=== PATIENT | female | born 1985 | race Caucasian/White ===

== ENCOUNTER 2016-11-24 17:38 | Emergency (ER) | payer MEDICAID ==
[2016-11-24 17:50] VITALS: BP 161/114
--- NOTE | 2016-11-24 18:17 | ED Physician Documentation ---
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 - Present Medications Home Medications: Ambulatory Orders Medication Instructions Recorded Confirmed Erythromycin Base [Erythromycin] 1 applic OP 5XD 7 Days 11/24/16 - Allergies Allergies/Adverse Reactions: Allergies Allergy/AdvReac Type Severity Reaction Status Date / Time No Known Drug Allergies Allergy Verified 11/24/16 17:46 - Social History Does the pt smoke?: Yes Smoking Status: Current every day smoker Does the pt drink ETOH?: Yes Does the pt have substance abuse?: No - Immunizations Immunizations are current?: Yes PD ED PE NORMAL - Vitals Vital signs reviewed: Yes - General General: Alert and oriented X 3, No acute distress - HEENT HEENT: PERRL, EOMI, Other (Inflamed conjunctiva bilaterally with mild purulent drainage, no fluorescein uptake. 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 Departure - Departure Disposition: 01 Home, Self Care Clinical Impression: Conjunctivitis Qualifiers: Conjunctivitis type: acute Acute conjunctivitis type: unspecified Laterality: bilateral Qualified Code(s): H10.33 - Unspecified acute conjunctivitis, bilateral Condition: Good Record reviewed to determine appropriate education?: Yes Instructions: ED Conjunctivitis Nonspecific Prescriptions: Erythromycin Base [Erythromycin] 1 applic OP 5XD 7 Days Comments: Followup with your eye doctor in one week if better, to 3 days if not better, return if worse. Do not wear your contacts until better for at least a week.+ Your blood pressure was elevated today on check in to the emergency department. This does not mean that you have hypertension, it is a common phenomenon to check into the emergency department and have elevated blood pressure. I recommend that you see your primary care physician within the week to have it rechecked when you're feeling better. Forms: Activity restrictions
== END 2016-11-24 18:24 | disposition home or self-care (01) ==
LOC: ED 17:38
DX: H10.33 Unspecified acute conjunctivitis, bilateral (principal); F17.200 Nicotine dependence, unspecified, uncomplicated; R03.0 Elevated blood-pressure reading, without diagnosis of hypertension
CPT/HCPCS: 99283

== ENCOUNTER 2018-07-09 20:25 | Emergency (ER) | payer SELFPAY ==
[2018-07-09 20:33] VITALS: BP 140/95
[2018-07-09] MEDS ORDERED: PENICILLIN VK 250 MG TABLET PO STA (20:50)
[2018-07-09] MEDS ORDERED: DEXAMETHASONE 10 MG/ML VIAL PO STA (20:50)
--- NOTE | 2018-07-09 20:52 | ED Physician Documentation ---
History of Present Illness - Stated complaint Stated Complaint: THROAT PX - Chief complaint Chief Complaint: Heent - History obtained from History obtained from: Patient - History of Present Illness Timing: How many days ago (3) Pain level max: 6 Pain level now: 6 - Additonal information Additional information: 33-year-old female presents to the emergency department for sore throat for the past several days. She has had URI symptoms for the past several weeks. Sore throat is gradually worsened over the past few days and now having difficulty swallowing. White exudate covering the tonsils. Worse with swallowing. 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 - Present Medications Home Medications: Ambulatory Orders Medication Instructions Recorded Confirmed Ibuprofen [Motrin] 800 mg PO Q8H PRN #30 tablet 07/09/18 Penicillin V Potassium 500 mg PO Q6HR #40 tablet 07/09/18 - Allergies Allergies/Adverse Reactions: Allergies Allergy/AdvReac Type Severity Reaction Status Date / Time No Known Drug Allergies Allergy Verified 07/09/18 20:32 - Social History Does the pt smoke?: Yes Smoking Status: Current every day smoker Does the pt drink ETOH?: Yes Does the pt have substance abuse?: No - Immunizations Immunizations are current?: Yes - POLST Patient has POLST: No PD ED PE NORMAL - Vitals Vital signs reviewed: Yes - General General: Alert and oriented X 3, No acute distress - HEENT HEENT: Ears normal, Moist mucous membranes, Other (Posterior oropharyngeal erythema with bilateral tonsillar exudates. Uvula midline. Normal phonation. No trismus) - Neck Neck: Supple, no meningeal sign, No adenopathy - Cardiac Cardiac: RRR, Strong equal pulses - Respiratory Respiratory: No respiratory distress, Clear bilaterally - Abdomen Abdomen: Soft, Non tender, Non distended - Derm Derm: Warm and dry - Neuro Neuro: Alert and oriented X 3 - Psych Psych: Normal mood, Normal affect Results - Vitals Vitals: Vital Signs - 24 hr 12/26/18 20:29 Temperature 36.8 C Heart Rate 105 H Respiratory 17 Rate Blood Pressure 140/95 H O2 Saturation 99 Oxygen O2 Source Room air - Labs Labs: Laboratory Tests 07/09/18 20:36 Group A Strep Rapid Negative PD MEDICAL DECISION MAKING - ED course Complexity details: reviewed results, re-evaluated patient, considered differential, d/w patient ED course: 33-year-old female with pharyngitis and tonsillar exudates. Appears consistent with streptococcal pharyngitis. Rapid strep is negative, but given the poor sensitivity and specificity of this test, will place on antibiotics and treat her clinically. Also given dexamethasone. Patient counseled regarding signs and symptoms for which I believe and urgent re-evaluation would be necessary. Patient with good understanding of and agreement to plan and is comfortable going home at this time This document was made in part using voice recognition software. While efforts are made to proofread this document, sound alike and grammatical errors may occur. Departure - Departure Disposition: 01 Home, Self Care Clinical Impression: Strep pharyngitis Condition: Good Instructions: ED Strep Pharyngitis Poss Follow-Up: your,doctor in 1 week if not better [Other] Prescriptions: Penicillin V Potassium 500 mg PO Q6HR #40 tablet Ibuprofen [Motrin] 800 mg PO Q8H PRN #30 tablet PRN Reason: PAIN &/OR FEVER Comments: Take all antibiotics until gone. Return if you worsen. Follow-up with your doctor for further care if you are not better in 1 week Forms: Activity restrictions Discharge Date/Time: 07/09/18 21:03
== END 2018-07-09 21:03 | disposition home or self-care (01) ==
LOC: ED 20:25
DX: J02.0 Streptococcal pharyngitis (principal); F17.200 Nicotine dependence, unspecified, uncomplicated
CPT/HCPCS: 87070; 87430; 99283; A9270

== ENCOUNTER 2019-09-22 11:00 | Emergency (ER) | payer SELFPAY ==
--- NOTE | 2019-09-22 11:45 | XRAY Report ---
Reason: pain/injury Procedure Date: 09/22/2019 Accession Number: [id number] / [id number] Procedure: XR - Ankle 3 View LT CPT Code: Final Report FULL RESULT: EXAM: LEFT ANKLE RADIOGRAPHY EXAM DATE: 09/22/2019 11:30 AM. CLINICAL HISTORY: Pain/injury. Tripped 3 days ago. COMPARISON: None. TECHNIQUE: 3 views. FINDINGS: Bones: No acute fracture. 3 x 5 mm elongated, well-corticated ossific density along inferomedial aspect of medial malleolus could be related to secondary ossicle or old avulsion. Joints: Normal. No effusion. No subluxations. The ankle mortise is normally aligned. Soft Tissues: Calcaneal enthesophytes. No soft tissue swelling. IMPRESSION: 1. No acute fracture. 2. A 5 mm elongated, well-corticated ossific density along inferomedial aspect of medial malleolus could be related to secondary ossicle or old avulsion. RADIA
--- NOTE | 2019-09-22 12:33 | ED Physician Documentation ---
PD HPI LOWER EXT INJURY - Stated complaint Stated Complaint: L FOOT PX - Chief complaint Chief Complaint: Trauma Ext - History obtained from History obtained from: Patient - History of Present Illness PD HPI LOW EXT INJURY LOCATION: Left, Ankle Type of injury: Twist (tripped over laundry and twisted ankle medially rotate/inversion. Pain lateral and anterior ankle.) Where injury occurred: Home Timing - onset: How many days ago (3) Timing - duration: Days (3) Timing - details: Abrupt onset, Still present Worsened by: Moving, Other (walking) Associated symptoms: Swelling (mild, but has improved). 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 - Present Medications Home Medications: Ambulatory Orders Medication Instructions Recorded Confirmed No Known Home Medications 09/22/19 09/22/19 - Allergies Allergies/Adverse Reactions: Allergies Allergy/AdvReac Type Severity Reaction Status Date / Time No Known Drug Allergies Allergy Verified 09/22/19 11:12 - Social History Does the pt smoke?: Yes Smoking Status: Current every day smoker Does the pt drink ETOH?: Yes Does the pt have substance abuse?: No - Immunizations Immunizations are current?: Yes - POLST Patient has POLST: No PD ED PE NORMAL - Vitals Vital signs reviewed: Yes - General General: Alert and oriented X 3, No acute distress, Well developed/nourished - Back Back: No spinal TTP - Derm Derm: Normal color, Warm and dry - Extremities Extremities: Other (left ankle tender anterolaterally and to lateral aspect distal lower leg, in area peroneal muscle. No effusion. No bony tenderness. ) - Neuro Neuro: Alert and oriented X 3, No motor deficit, No sensory deficit, Normal speech Results - Vitals Vitals: Vital Signs - 24 hr 09/22/19 09/22/19 11:12 13:36 Temperature 36.9 C 36.7 C Heart Rate 78 65 Respiratory 18 16 Rate Blood Pressure 123/104 H 122/62 O2 Saturation 98 99 Oxygen O2 Source Room air - Rads (name of study) left ankle Radiology: Prelim report reviewed (no acute fracture. secondary ossicle vs old remote avulsion.), See rad report PD MEDICAL DECISION MAKING - ED course Complexity details: considered differential (seems likely sprain/strain. No acute fractures. ), d/w patient Departure - Departure Disposition: 01 Home, Self Care Clinical Impression: Ankle sprain Qualifiers: Encounter type: initial encounter Involved ligament of ankle: anterior talofibular ligament Laterality: left Qualified Code(s): S93.492A - Sprain of other ligament of left ankle, initial encounter Condition: Stable Record reviewed to determine appropriate education?: Yes Instructions: ED Sprain Ankle W X Ray Follow-Up: [facility] [Provider Group] [facility] [Provider Group] Comments: Use the ankle brace when up and around for the next week. Normal activity as tolerated. You can follow-up with orthopedic group or to the podiatry ([facility]) for further evaluation of both ankles. Ibuprofen or Tylenol if needed for pains. Discharge Date/Time: 09/22/19 13:36
[2019-09-22 13:37] VITALS: BP 122/62
== END 2019-09-22 13:36 | disposition home or self-care (01) ==
LOC: ED 11:00
DX: S93.492A Sprain of other ligament of left ankle, initial encounter (principal); W01.0XXA Fall on same level from slipping, tripping and stumbling without subsequent striking against object, initial encounter; Y92.009 Unspecified place in unspecified non-institutional (private) residence as the place of occurrence of the external cause; F17.200 Nicotine dependence, unspecified, uncomplicated
CPT/HCPCS: 99283; 99284

== ENCOUNTER 2019-12-15 15:45 | Emergency (ER) | payer SELFPAY ==
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
--- NOTE | 2019-12-15 16:37 | XRAY Report ---
Reason: ring finger pain. r/o distal fx Procedure Date: 12/15/2019 Accession Number: [id number] / [id number] Procedure: XR - Finger(s) RT CPT Code: Final Report FULL RESULT: PROCEDURE: Finger(s) RT INDICATIONS: ring finger pain. r/o distal fx TECHNIQUE: AP hand, 3 views of the right fourth finger(s) acquired. COMPARISON: None FINDINGS: Bones: Transverse, comminuted fracture of the fourth middle phalange. Fracture lucencies do not extend into the PIP or DIP joints. Soft tissues: No suspicious soft tissue calcifications. IMPRESSION: Fourth middle phalange fracture. Reviewed by: Marlene Etienne MD, PhD on 12/15/2019 4:35 PM PDT Approved by: Marlene Etienne MD, PhD on 12/15/2019 4:35 PM PDT Station ID: [id number]
[2019-12-15 16:58] VITALS: BP 122/70
== END 2019-12-15 17:10 | disposition home or self-care (01) ==
LOC: ED 15:45
DX: S62.624A Displaced fracture of middle phalanx of right ring finger, initial encounter for closed fracture (principal); X58.XXXA Exposure to other specified factors, initial encounter; Y93.89 Activity, other specified; F17.200 Nicotine dependence, unspecified, uncomplicated
CPT/HCPCS: 73140; 99282; 99283

== ENCOUNTER 2021-02-23 10:09 | Emergency (ER) | payer MEDICAID ==
[2021-02-23 10:22] VITALS: BP 126/90
--- NOTE | 2021-02-23 10:56 | ED Physician Documentation ---
PD HPI LOWER EXT INJURY - Stated complaint Stated Complaint: TWISTED L KNEE - Chief complaint Chief Complaint: Ext Problem - History obtained from History obtained from: Patient - History of Present Illness PD HPI LOW EXT INJURY LOCATION: Left, Knee Type of injury: Fall (jumping on trampoline and felt pop and pain medial left knee as landed the bounce, causing knee to buckle and she fell medially with valgus stress of the knee. Noteworthy is that the knee hurt and buckled causing the fall.) Where injury occurred: Home Timing - details: Abrupt onset, Still present (pain with walking and has feeling of knee giving out and crunching.) Worsened by: Moving Associated symptoms: Swelling. 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: None : None HEENT: None Psych: None Musculoskeletal: None Derm: None - Past Surgical History 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 - Present Medications Home Medications: Ambulatory Orders Medication Instructions Recorded Confirmed HYDROcod/ACETAM 5/325 [[place] 5/325] 1 ea PO Q6H PRN #15 tablet 02/23/21 Ibuprofen [Motrin] 600 mg PO TID PRN #25 tab 02/23/21 - Allergies Allergies/Adverse Reactions: Allergies Allergy/AdvReac Type Severity Reaction Status Date / Time No Known Drug Allergies Allergy Verified 02/23/21 10:23 - Social History Does the pt smoke?: Yes Smoking Status: Current every day smoker Does the pt drink ETOH?: Yes Does the pt have substance abuse?: No - Immunizations Immunizations are current?: Yes - POLST Patient has POLST: No PD ED PE NORMAL - Vitals Vital signs reviewed: Yes - General General: Alert and oriented X 3, No acute distress (not appearing in pain while sitting rested. Pain with ROM of the knee. ), Well developed/nourished - Derm Derm: Normal color, Warm and dry - Extremities Extremities: Other (left knee with effusion and with tenderness medial joint line. Some pain but no laxity with valgus stress. No pain nor laxity with Lachmann/Drawer. Significant pain with impaction/rotation passively c/w meniscal. ) - Neuro Neuro: Alert and oriented X 3, No motor deficit, No sensory deficit, Normal speech Results - Vitals Vitals: Oxygen O2 Source Room air - Rads (name of study) left knee Radiology: Prelim report reviewed (no fractures. large effusion noted. ), See rad report PD MEDICAL DECISION MAKING - ED course Complexity details: reviewed results, considered differential (mechanism and findings most sugggestive of meniscal tear, though need xray to ensure not karel teau fracture. ), d/w patient Departure - Departure Disposition: 01 Home, Self Care Clinical Impression: Acute cartilage injury of knee Qualifiers: Encounter type: initial encounter Laterality: left Qualified Code(s): S89.92XA - Unspecified injury of left lower leg, initial encounter Condition: Stable Record reviewed to determine appropriate education?: Yes Instructions: ED Meniscal Injury Knee Poss Follow-Up: Justin Nolan MD [Provider Admit Priv/Credential] - Prescriptions: Ibuprofen [Motrin] 600 mg PO TID PRN #25 tab PRN Reason: Pain HYDROcod/ACETAM 5/325 [[place] 5/325] 1 ea PO Q6H PRN #15 tablet PRN Reason: Pain Comments: Your x-ray is normal without any fractures. However the injury and exam seem consistent with the likely torn cartilage in the knee. Initially we will treat this with a knee immobilizer and crutches for nonweightbearing. As the pain decreases over several days to a week, you can increase weightbearing and activity. However you want to maintain the knee brace when up and around for 3 to 4 weeks. You may feel most comfortable with the knee brace on when rested or sleeping as well initially. You do not have to have it on when rested however so you can take it off at times. You can start weightbearing without crutches as tolerated based on the discomfort. Again maintain the knee brace when any activity or ambulating. Use an anti-inflammatory such as ibuprofen 3 times a day with food. To that add Tylenol every 4 hours if needed for pain or hydrocodone if needed in the short- term for worse pain. Follow-up with orthopedics in about 1 to 1-1/2 weeks, call for an appointment. At that point they can reassess the knee exam and decide if any further interventions or imaging are indicated. We will give a sense of how well it is initially healing. Forms: Activity restrictions Discharge Date/Time: 02/23/21 13:20
[2021-02-23] MEDS ORDERED: IBUPROFEN 600 MG TABLET PO STA (11:16)
[2021-02-23] MEDS ORDERED: HYDROcod/ACETAM 5/325 MG TABLET PO STA (11:16)
--- NOTE | 2021-02-23 11:58 | XRAY Report ---
PROCEDURE: Knee 3 View LT INDICATIONS: Left knee injury on trampoline TECHNIQUE: 3 views of the left knee(s) were acquired. COMPARISON: None. FINDINGS: There is no fracture. Normal alignment of the knee. There is a moderate-sized suprapatellar knee join t effusion. No suspicious lytic or blastic osseous lesion. IMPRESSION: Moderate size knee joint effusion. No evidence of fracture. Findings raise concern for l igamentous injury. Nonemergent outpatient MRI could be considered. Reviewed by: Victor Manuel Triana MD on 02/23/2021 11:57 AM PDT Approved by: Victor Manuel Triana MD on 02/23/2021 11:57 AM PDT Station ID: [id number]
== END 2021-02-23 13:20 | disposition home or self-care (01) ==
LOC: ED 10:09
DX: S89.82XA Other specified injuries of left lower leg, initial encounter (principal); X50.1XXA Overexertion from prolonged static or awkward postures, initial encounter; Y93.44 Activity, trampolining; Y92.009 Unspecified place in unspecified non-institutional (private) residence as the place of occurrence of the external cause; F17.200 Nicotine dependence, unspecified, uncomplicated
CPT/HCPCS: 73562; 99283; A9270